=== PATIENT | male | born 1965 | race African-American/Black ===

== ENCOUNTER 2018-01-05 23:09 | Inpatient (IN) ==
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
[2018-01-06 02:48] LABS: Calcium 8.5 mg/dL (8.6-10.3); Potassium 2.4 mEq/L (3.5-5.1)
[2018-01-06] MEDS ORDERED: Potassium Chloride Elixir 20 MEQ/15 ML UDC PO ONE (02:48)
[2018-01-06] MEDS ORDERED: Potassium Chloride 40 MEQ, Lidocaine 1% 2 ML in D5% in Water 500 ML IVPB ONE ×2 (03:31→13:00)
[2018-01-06] MEDS ORDERED: Acetaminophen 325 MG TABLET PO ONE (03:43)
[2018-01-06 03:44] LABS: Basophils % 0.3 %; Hematocrit 34.3 % (37.5-50.1); Hemoglobin 11.6 g/dL (12.9-16.9); Immature Granulocytes % 0.3 % (0-4); Lymphocytes # 0.9 K/mcL (0.6-4.6); Lymphocytes % 13.6 %; Mean Corpuscular HGB Conc 33.8 g/dL (31.6-35.5); Mean Corpuscular Hemoglobin 30.5 pg (28.0-33.3); Mean Corpuscular Volume 90.3 fL (83.0-100.0); Mean Platelet Volume 9.9 fL (9.4-12.4); Monocytes # 0.6 K/mcL (0.0-1.3); Monocytes % 9.3 %; Platelet Count 285 K/mcL (140-400); Red Cell Distribution Width 14.1 % (11.5-14.5); Segmented Neutrophils % 76.5 %
[2018-01-06] MEDS ORDERED: Naloxone 0.4 MG/ML INJ IVP PRN (04:52)
[2018-01-06] MEDS ORDERED: *HR* HYDROcodone/Acet 5/325 mg TABLET PO PRN (04:52)
[2018-01-06] MEDS ORDERED: traMADol 50 MG TABLET PO PRN (05:02)
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
[2018-01-06 05:20] LABS: Magnesium 1.5 mg/dL (1.6-2.6)
[2018-01-06] MEDS: *HR* Heparin 5,000 UNIT/ML VIAL SQ SCH ×2 (06:22→19:12)
[2018-01-06 11:04] LABS: Basophils % 0.4 %; Eosinophils % 0.2 %; Hematocrit 33.3 % (37.5-50.1); Hemoglobin 11.1 g/dL (12.9-16.9); Immature Granulocytes % 0.2 % (0-4); Lymphocytes # 1.3 K/mcL (0.6-4.6); Lymphocytes % 29.3 %; Mean Corpuscular HGB Conc 33.3 g/dL (31.6-35.5); Mean Corpuscular Hemoglobin 30.5 pg (28.0-33.3); Mean Corpuscular Volume 91.5 fL (83.0-100.0); Mean Platelet Volume 9.8 fL (9.4-12.4); Monocytes # 0.5 K/mcL (0.0-1.3); Monocytes % 11.2 %; Neutrophils # 2.7 K/mcL (1.6-8.9); Nucleated Red Blood Cells 0.9 /100 WBC (0); Platelet Count 245 K/mcL (140-400); Red Blood Count 3.64 M/mcL (4.19-5.50); Red Cell Distribution Width 14.1 % (11.5-14.5); Segmented Neutrophils % 58.7 %
[2018-01-06 12:08] LABS: Alanine Aminotransferase 5 Units/L (7-52); Albumin 3.2 g/dL (3.5-5.7); Albumin/Globulin Ratio 1.1 (1.1-2.2); Alkaline Phosphatase 75 Units/L (34-104); Aspartate Amino Transferase 11 Units/L (13-39); BUN/Creatinine Ratio 5 (6-26); Bilirubin,Total 0.9 mg/dL (0.3-1.0); Blood Urea Nitrogen 7 mg/dL (6-20); Calcium 8.4 mg/dL (8.6-10.3); Carbon Dioxide 31 mEq/L (23-29); Chloride 100 mEq/L (98-107); Glucose 89 mg/dL (70-105); Magnesium 1.6 mg/dL (1.6-2.6); Osmolality,Calculated 287 (280-300); Potassium 2.6 mEq/L (3.5-5.1); Sodium 140 mEq/L (136-145); Total Protein 6.2 g/dL (6.4-8.9); eGFR For African Americans > 60 (> 60); eGFR For Non-African Americans 51 (> 60)
--- NOTE | 2018-01-06 22:18 | Event Note ---
Date of Encounter: 01/06/18 Time of Encounter: 22:15 S: Patient had no acute events overnight after admission. He states that he feels great and wants to go home. He states that he needs to go home because his only ride if coming this afternoon, and he does not have money to get back home to [place] if he does not go with him. 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 Later this afternoon, he states that he has been able to get his to come this evening, and she will eventually take him back home. He is now willing to stay for full workup and treatment. He has no complaints today. No more syncopal episodes. N/V resolved. No chest pain or SOB. O: Vitals - Temp 98.1 degrees F, HR 77, RR 14, BP 126/98, O2 sat 100% on RA. Gen - Awake, alert, pleasant, no acute distress HEENT - PERRLA, EOMI, hearing grossly intact, oropharynx benign Resp - Normal WOB, CTAB, no W/R/R CV - RRR, normal S1 and S2, no M/R/G, no BLE edema GI - Soft, NT/ND, no mass, normal bowel sounds, no HSP Skin - Warm, dry, intact, no rashes/lesions/ulcers Psych - Normal mood and affect, no depression or anxiety A/P: 1) Syncope - Resolved. No further episodes. May have been related to 2 and 3 below. ECHO and carotid duplex pending. 2) Prolonged QT - Resolved on repeat EKG this AM. Continue to monitor and fix hypokalemia as per below. 3) Hypokalemia - Slightly improve. K = 2.6. Give 40 mEq KCl IV once. Recheck BMP in AM. 4) Hypomagnesemia - Give 2 g mag sulfate IM once. Recheck mag in AM.
[2018-01-07 04:31] LABS: BUN/Creatinine Ratio 4 (6-26); Blood Urea Nitrogen 5 mg/dL (6-20); Calcium 8.3 mg/dL (8.6-10.3); Carbon Dioxide 30 mEq/L (23-29); Chloride 103 mEq/L (98-107); Glucose 76 mg/dL (70-105); Magnesium 1.9 mg/dL (1.6-2.6); Osmolality,Calculated 290 (280-300); Sodium 142 mEq/L (136-145); eGFR For African Americans > 60 (> 60); eGFR For Non-African Americans 55 (> 60)
[2018-01-07] MEDS: *HR* Heparin 5,000 UNIT/ML VIAL SQ SCH ×2 (05:03→16:51)
[2018-01-07 15:13] LABS: Calcium 8.5 mg/dL (8.6-10.3); Potassium 2.9 mEq/L (3.5-5.1)
--- NOTE | 2018-01-07 22:22 | Internal Med Progress Note ---
Date of Encounter: 01/07/18 Time of Encounter: 22:20 - Assessment and plan (1) Syncope Current Visit: Yes Status: Resolved Assessment and plan: Resolved. No further episodes. Follow up on ECHO and carotid duplex results. Continue potassium repletion as per below. Continue telemetry. Qualifiers: Syncope type: unspecified Qualified Code(s): R55 - Syncope and collapse (2) Prolonged QT interval Current Visit: Yes Status: Resolved Assessment and plan: Resolved on repeat EKG yesterday. Likely related to hypokalemia. Replete potassium as per below. (3) Hypokalemia Current Visit: Yes Status: Acute Assessment and plan: Low again this AM. N/V resolved. Give KCl 40 mEq PO Q6H x 2. Recheck BMP this afternoon and tomorrow AM. (4) Meningitis Current Visit: Yes Status: Chronic Assessment and plan: Continue home medications. Obtain records from PCP. (5) Multiple myeloma Current Visit: Yes Status: Chronic Assessment and plan: Patient has finished chemotherapy. Continue follow-up with his PCP as outpatient Qualifiers: Multiple myeloma remission status: in remission Qualified Code(s): C90.01 - Multiple myeloma in remission (6) DVT prophylaxis Current Visit: Yes Status: Acute Assessment and plan: Continue SC heparin. - Time Spent With Patient less than 15 minutes - Subjective Interval history: Patient had no acute events overnight. He states that he feels great today. He still wants to go home. No further dizziness/syncopal episodes. came today, but now has to go back to [place] for family emergency. He again needs ride home due to financial issues; patient advised lilian [facility] working on it. He denies chest pain or SOB. He has no new complaints. - Constitutional Vitals: Temp Pulse Resp BP Pulse Ox 97.9 F 78 16 126/87 100 01/07/18 19:11 01/07/18 19:11 01/07/18 19:11 01/07/18 19:11 01/07/18 19:11 General appearance: Present: cooperative, A&O X 3, pleasant, no acute distress, answers questions appropriately - Respiratory Respiratory exam: Present: CTAB. Absent: accessory muscle use, rales, rhonchi, wheezes Additional comments: Normal WOB - Cardiovascular Cardiovascular exam: Present: RRR, +S1, +S2. Absent: diastolic murmur, gallop, rubs, systolic murmur Additional comments: No BLE edema - GI/Abdominal GI/Abdominal exam: Present: normal bowel sounds, soft. Absent: distended, hepatomegaly, mass, splenomegaly, tenderness - Psychiatric Psychiatric exam: Present: normal affect, normal mood. Absent: anxious, depressed - Skin Skin exam: Present: dry, intact, warm. Absent: cyanosis, rash Internal Medicine: Result - Labs CBC & Chem 7: 01/06/18 10:28 01/07/18 14:37 Labs: BMP 01/07/18 01/07/18 03:17 14:37 Sodium 142 142 Potassium 2.4 L* 2.9 L Chloride 103 103 Carbon Dioxide 30 H 29 BUN 5 L 5 L Creatinine 1.35 H 1.72 H Glucose 76 104 Calcium 8.3 L 8.5 L Consult Discharge Plan - Plan Referrals: NONE,PCP [Primary Care Provider] -
[2018-01-08] MEDS: *HR* Heparin 5,000 UNIT/ML VIAL SQ SCH ×2 (05:17→18:14)
[2018-01-08 05:27] LABS: Calcium 8.1 mg/dL (8.6-10.3); Potassium 2.8 mEq/L (3.5-5.1)
[2018-01-08] MEDS ORDERED: Potassium Chloride 40 MEQ, Lidocaine 1% 2 ML in D5% in Water 500 ML IVPB ONE (08:33)
[2018-01-08 14:35] LABS: Calcium 8.1 mg/dL (8.6-10.3); Potassium 3.5 mEq/L (3.5-5.1)
--- NOTE | 2018-01-09 00:48 | Internal Med Progress Note ---
Date of Encounter: 01/09/18 Time of Encounter: 19:07 - Assessment and plan (1) Syncope Current Visit: Yes Status: Resolved Assessment and plan: Resolved. No further episodes. ECHO with LVEF of 55%; mild left ventricular diastolic dysfunction, but otherwise normal. Carotid duplex normal. Continue potassium repletion as per below. Continue telemetry. Qualifiers: Syncope type: unspecified Qualified Code(s): R55 - Syncope and collapse (2) Prolonged QT interval Current Visit: Yes Status: Resolved Assessment and plan: Resolved on repeat EKG the day following admission. Likely related to hypokalemia. Replete potassium as per below. (3) Hypokalemia Current Visit: Yes Status: Acute Assessment and plan: Worsening this AM. K = 2.8. Give KCl 40 mEq IV once along with KCl 40 mEq PO once this AM, then resume KCl 40 mEq PO BID. Recheck BMP this afternoon and in AM. N/V resolved. He has had low potassium in the past. He is on intraconazole for meningitis, and this drug can cause hypokalemia. I have requested medical records from PCP so that I can see if this medication can be stopped. I will keep him on it for now and see if we can stabilize his potassium, and if so discharge him maybe tomorrow with potassium supplementation. (4) Meningitis Current Visit: Yes Status: Chronic Assessment and plan: Continue home medications. Obtain records from PCP. (5) Multiple myeloma Current Visit: Yes Status: Chronic Assessment and plan: Patient has finished chemotherapy. Continue follow-up with his PCP as outpatient. Qualifiers: Multiple myeloma remission status: in remission Qualified Code(s): C90.01 - Multiple myeloma in remission (6) Chronic kidney disease (CKD) Current Visit: Yes Status: Acute Assessment and plan: Patient tells me today that he has CKD. He is followed by a nibbler operator. Creatinine mildly elevated since admission; somewhat down today. Will encourage PO hydration. Recheck BMP in AM. He has follow up set up already with his nibbler operator in the next few weeks. Qualifiers: Chronic kidney disease stage: stage 2 (mild) Qualified Code(s): N18.2 - Chronic kidney disease, stage 2 (mild) (7) DVT prophylaxis Current Visit: Yes Status: Acute Assessment and plan: Continue SC heparin. - Time Spent With Patient less than 15 minutes - Subjective Interval history: Patient had no acute events overnight. He states that he is doing well. His is coming tomorrow and he hopes to be able to go home with her. No further dizziness/syncopal episodes. He denies chest pain or SOB. He has no new complaints. - Constitutional Vitals: Temp Pulse Resp BP Pulse Ox 98.0 F 84 17 133/95 100 01/08/18 15:29 01/08/18 19:11 01/08/18 19:11 01/08/18 19:11 01/08/18 19:54 General appearance: Present: cooperative, A&O X 3, pleasant, no acute distress, answers questions appropriately - Respiratory Respiratory exam: Present: CTAB. Absent: accessory muscle use, rales, rhonchi, wheezes Additional comments: Normal WOB - Cardiovascular Cardiovascular exam: Present: RRR, +S1, +S2. Absent: diastolic murmur, gallop, rubs, systolic murmur Additional comments: No BLE edema - GI/Abdominal GI/Abdominal exam: Present: normal bowel sounds, soft. Absent: distended, hepatomegaly, mass, splenomegaly, tenderness - Psychiatric Psychiatric exam: Present: normal affect, normal mood. Absent: anxious, depressed - Skin Skin exam: Present: dry, intact, warm. Absent: cyanosis, rash Internal Medicine: Result - Labs CBC & Chem 7: 01/06/18 10:28 01/09/18 05:56 Labs: BMP 01/08/18 01/08/18 04:48 13:21 Sodium 142 140 Potassium 2.8 L 3.5 Chloride 106 107 Carbon Dioxide 29 27 BUN 6 7 Creatinine 1.50 H 1.66 H Glucose 80 119 H Calcium 8.1 L 8.1 L - VTE Documentation of Mechanical Device: Intermittent pneumatic compression device Consult Discharge Plan - Plan Referrals: NONE,PCP [Primary Care Provider] -
[2018-01-09] MEDS: *HR* Heparin 5,000 UNIT/ML VIAL SQ SCH ×2 (05:27→15:44)
[2018-01-09 06:58] LABS: BUN/Creatinine Ratio 6 (6-26); Blood Urea Nitrogen 8 mg/dL (6-20); Calcium 8.4 mg/dL (8.6-10.3); Carbon Dioxide 26 mEq/L (23-29); Chloride 109 mEq/L (98-107); Glucose 90 mg/dL (70-105); Osmolality,Calculated 292 (280-300); Potassium 3.4 mEq/L (3.5-5.1); Sodium 142 mEq/L (136-145); eGFR For African Americans > 60 (> 60); eGFR For Non-African Americans 51 (> 60)
--- NOTE | 2018-01-09 11:09 | Discharge Summary ---
- NOTES TO OUTPATIENT PROVIDER Notes to Outpatient Provider: Follow up with PCP in 2-3 days after discharge. Recheck BMP (hypokalemia, CKD) and EKG (prolonged QT) at that time. Please adjust potassium supplementation based on results. Consider discontinuation of itraconazole if possible as this may be causing repeated symptomatic hypokalemia. Follow up with interior paneler as already scheduled. Date of Encounter: 01/09/18 Time of Encounter: 11:07 - Discharge Diagnosis (1) Syncope Priority: Primary Status: Resolved Qualifiers: Syncope type: unspecified Qualified Code(s): R55 - Syncope and collapse (2) Prolonged QT interval Priority: Secondary Status: Resolved (3) Hypokalemia Priority: Secondary Status: Resolved (4) Meningitis Priority: Secondary Status: Chronic (5) Multiple myeloma Priority: Secondary Status: Chronic Qualifiers: Multiple myeloma remission status: in remission Qualified Code(s): C90.01 - Multiple myeloma in remission (6) Chronic kidney disease (CKD) Priority: Secondary Status: Chronic Qualifiers: Chronic kidney disease stage: stage 2 (mild) Qualified Code(s): N18.2 - Chronic kidney disease, stage 2 (mild) (7) DVT prophylaxis Priority: Secondary Status: Acute Hospital course: Mr. Esparza is a 52 year old male admitted for syncope. He was found to have hypokalemia and prolonged Qt interval upon admission. He was admitted to general medical floor with telemetry. He was started on potassium supplementation. His Qt prolongation resolved on EKG next day. Potassium stores slowly improved over next few days. A request was placed for medical records from his PCP. He is on chronic itraconazole for meningitis. Although this drug can cause hypokalemia, I was not able to stop it without first obtaining records and see what exactly he was taking it for. He will follow up with his PCP in 2-3 days after discharge. PCP can recheck BMP (hypokalemia, CKD ) and EKG (prolonged QT) at that time. PCP can adjust potassium supplementation based on results. Consider discontinuation of itraconazole if possible as this may be causing repeated symptomatic hypokalemia. He will follow up with interior paneler in next few weeks as already scheduled. Patient has met maximum benefit of this hospitalization and will be discharged home in stable condition. Discharge discussed with: patient, nurse - Time Spent with Patient Total time spent providing and/or coordinating discharge services: Greater than 30 minutes - Discharge Medications Prescriptions: Potassium Chloride 40 meq PO BID 7 Days #28 tab.er.prt Home Medications: Dexlansoprazole [Dexilant] 60 mg PO DAILY 01/06/18 [History] Sildenafil Citrate [Viagra] 100 mg PO PRN PRN 01/06/18 [History] Tramadol HCl [Ultram] 50 mg PO TID PRN 01/06/18 [History] Itraconazole [Sporanox] 100 mg PO HS capsule 01/09/18 [Rx] Potassium Chloride 40 meq PO BID 7 Days #28 tab.er.prt 01/09/18 [Rx] Allergies/Adverse Reactions: 3 Allergy/AdvReac Type Severity Reaction Status Date / Time No Known Allergies Allergy Verified 01/06/18 09:17 Date of admission: 01/06/18 05:53 Primary care physician: PCP NONE Consults: 01/06/18 11:32 Consult to Scheduler Maintenance [CONS] Routine Reason for SW Consult: 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 Patient from [place]. Discharging clinician: Adria Oropeza Anticipated date of discharge: 01/09/18 - Constitutional Vitals: Temp Pulse Resp BP Pulse Ox 97.7 F 89 16 120/91 99 01/09/18 08:26 01/09/18 08:26 01/09/18 08:26 01/09/18 08:26 01/09/18 08:26 General appearance: Present: cooperative, A&O X 3, pleasant, no acute distress, answers questions appropriately - Respiratory Respiratory exam: Present: CTAB. Absent: accessory muscle use, rales, rhonchi, wheezes Additional comments: Normal WOB - Cardiovascular Cardiovascular exam: Present: RRR, +S1, +S2. Absent: diastolic murmur, gallop, rubs, systolic murmur Additional comments: No BLE edema - GI/Abdominal GI/Abdominal exam: Present: normal bowel sounds, soft. Absent: distended, hepatomegaly, mass, splenomegaly, tenderness - Psychiatric Psychiatric exam: Present: normal affect, normal mood. Absent: anxious, depressed - Skin Skin exam: Present: dry, intact, warm. Absent: cyanosis, rash - Patient Status Disposition: Home, Self-Care Condition: Good Functional capacity at discharge: independent ambulation Overall status at discharge: patient is back to baseline - Discharge Instructions Follow Up With: NONE,PCP [Primary Care Provider] - Additional Instructions: Follow up with PCP in 2-3 days after discharge. Recheck BMP (hypokalemia, CKD) and EKG (prolonged QT) at that time. Please adjust potassium supplementation based on results. Consider discontinuation of itraconazole if possible as this may be causing repeated symptomatic hypokalemia. Follow up with interior paneler as already scheduled. - Diet and Activity Activity: resume usual activities as tolerated Diet: advance to your usual diet (Eat potassium-rich foods like bananas) - VTE Documentation of Mechanical Device: Intermittent pneumatic compression device
[2018-01-09 12:59] VITALS: BP 123/101
[2018-01-10 23:25] LABS: Potassium 2.4 mEq/L (3.5-5.1)
--- NOTE | 2018-01-11 16:17 | Electrocardiograph Report ---
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
--- NOTE | 2018-01-11 20:49 | Electrocardiograph Report ---
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
--- NOTE | 2018-01-11 20:50 | Electrocardiograph Report ---
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
== END 2018-01-09 19:54 | disposition home or self-care (01) | DRG 309 ==
LOC: EMEROO 23:09 → 2NENU 23:09
PROVIDERS: ADMIT Internal Medicine; ATTEND Family Medicine